=== PATIENT | female | born 1965 | race Two or more races ===

== ENCOUNTER 2020-05-17 15:15 | Emergency (ER) | payer OTHER ==
[~2020-05-17] VITALS: Ht 157.5 cm; Wt 63.5 kg
--- NOTE | 2020-05-17 15:40 | Emergency Room Report ---
History of Present Illness General Chief Complaint: Chest Pain Source: Patient Present Illness HPI Disclaimer: Please note that this report is being documented using [employer] technology. This can lead to erroneous entry secondary to incorrect interpretation by the dictating instrument. HPI: 54-year-old female presents for evaluation of elevated blood pressure readings at home. She takes losartan 50 mg at night has been compliant with her current regimen. She states her blood pressures were elevated 2 nights ago as high as 190 systolic. This morning they were in the 140s however she called her clinic and was advised to present to the emergency department for evaluation of elevated blood pressures. She states she had mild chest discomfort neither pain on pressure 2 days ago but now is feeling well. She reported urinary frequency last night. She denied headaches, visual changes, nausea, vomiting, lightheadedness, palpitations, shortness of breath, cough, fever, chills or other changes in her health otherwise. She is not a diabetic. No prior cardiac history. Non-smoker. PMH: Hypertension PSH: Reviewed Allergies: Denied Social Hx: Non-smoker, denies alcohol or drug use Allergies: Coded Allergies: No Known Allergies (Unverified , 05/17/20) COVID-19 Screening Contact w/high risk pt: No Experienced COVID-19 symptoms?: No COVID-19 Testing performed INTERNAL CONTROL CONSULTANT: No Patient History Last Menstrual Period: na Nursing Documentation-PMH Past Medical History: No History, Except For Hx Hypertension: Yes Review of Systems All Other Systems: negative except mentioned in HPI Physical Exam Vital Signs Date Time Temp Pulse Resp B/P (MAP) Pulse Ox O2 Delivery O2 Flow Rate FiO2 05/17/20 15:27 98.4 86 19 143/92 (109) 97 Room Air General: Awake and alert, no acute distress HEENT: NC/AT. EOMI. Cardiovascular: RRR. S1 and S2 normal. No murmur appreciated Resp: Normal work of breathing. No cough, wheezing or crackles appreciated Abdomen: Abdomen is soft, nondistended. Nontender Skin: Intact. No abrasions, laceration or rash over the exposed skin MSK: Normal tone and bulk. Moving all extremities. No obvious deformity. No lower extremity edema Neuro: Awake and alert. Mentating appropriately. Medical Decision Making Diagnostic Impression: Primary Impression: Hypertension ER Course Is a 54-year-old female presenting for evaluation of elevated blood pressure readings at home over the past few days. She is compliant with her 50 mg nightly medication. Currently has no complaints and is resting comfortably in bed. Differential includes was not limited to medication noncompliance, inadequate medication regimen, hypertensive urgency, hypertensive emergency, ACS, arrhythmia, renal failure, electrolyte abnormality, urinary tract infection, anxiety among others. EKG is nonischemic and overall unremarkable. No findings on chest x-ray. Cardiac silhouette within normal limits. Labs are returned within normal limits including a negative troponin. Patient remains chest pain-free. She is reassured by these results. Heart score is 2 for age and risk factor of hypertension. Patient is low risk for MACE and appropriate for outpatient follow-up. Copies of her work-up today were provided in discharge paperwork to take to her physician. Encouraged her to discuss her symptoms with her PMD as she may require further outpatient testing. Instructed her to return to the emergency department new or worsening symptoms. She understands and agrees with this treatment plan. Laboratory Tests Test 05/17/20 15:45 White Blood Count 6.8 K/UL (4.8-10.8) Red Blood Count 4.79 M/UL (4.20-5.40) Hemoglobin 15.5 G/DL (12.0-16.0) Hematocrit 43.8 % (37.0-47.0) Mean Corpuscular Volume 91 FL (80-99) Mean Corpuscular Hemoglobin 32.4 PG (27.0-31.0) H Mean Corpuscular Hemoglobin Concent 35.5 G/DL (32.0-36.0) Red Cell Distribution Width 12.2 % (11.6-14.8) Platelet Count 224 K/UL (150-450) Mean Platelet Volume 7.4 FL (6.5-10.1) Neutrophils (%) (Auto) 59.2 % (45.0-75.0) Lymphocytes (%) (Auto) 28.6 % (20.0-45.0) Monocytes (%) (Auto) 9.9 % (1.0-10.0) Eosinophils (%) (Auto) 1.1 % (0.0-3.0) Basophils (%) (Auto) 1.3 % (0.0-2.0) Urine Color Pale yellow Urine Appearance Slightly cloudy Urine pH 6.5 (4.5-8.0) Urine Specific [place] 1.010 (1.005-1.035) Urine Protein Negative (NEGATIVE) Urine Glucose (UA) Negative (NEGATIVE) Urine Ketones Negative (NEGATIVE) Urine Blood 1+ (NEGATIVE) H Urine Nitrite Negative (NEGATIVE) Urine Bilirubin Negative (NEGATIVE) Urine Urobilinogen Normal MG/DL (0.0-1.0) Urine Leukocyte Esterase Negative (NEGATIVE) Urine RBC 2-4 /HPF (0 - 2) H Urine WBC 0-2 /HPF (0 - 2) Urine Squamous Epithelial Cells Few /LPF (NONE/OCC) Urine Bacteria Few /HPF (NONE) Sodium Level 139 MMOL/L (136-145) Potassium Level 3.9 MMOL/L (3.5-5.1) Chloride Level 103 MMOL/L (98-107) Carbon Dioxide Level 28 MMOL/L (21-32) Anion Gap 8 mmol/L (5-15) Blood Urea Nitrogen 13 mg/dL (7-18) Creatinine 1.1 MG/DL (0.55-1.30) Estimated Glomerular Filtration Rate 51.6 mL/min (>60) Glucose Level 127 MG/DL (74-106) H Calcium Level 8.4 MG/DL (8.5-10.1) L Total Bilirubin 0.6 MG/DL (0.2-1.0) Aspartate Amino Transferase (AST) 25 U/L (15-37) Alanine Aminotransferase (ALT) 24 U/L (12-78) Alkaline Phosphatase 75 U/L (46-116) Troponin I 0.000 ng/mL (0.000-0.056) Total Protein 7.0 G/DL (6.4-8.2) Albumin 4.3 G/DL (3.4-5.0) Globulin 2.7 g/dL Albumin/Globulin Ratio 1.6 (1.0-2.7) EKG Diagnostic Results Troponin ordered: Yes When was troponin ordered?: May 17, 2020 EKG Time: 15:42 Rate: normal Rhythm: NSR ST Segments: no acute changes Other Impression Sinus rhythm, normal axis, normal intervals, no ST segment changes. Rhythm Strip Diag. Results Rhythm Strip Time: 15:42 EP Interpretation: yes Rate: 70s Rhythm: NSR, no PVC's, no ectopy Chest X-Ray Diagnostic Results Chest X-Ray Diagnostic Results : Chest X-Ray Ordered: Yes Indication: Chest Pain EP Interpretation: Yes Interpretation: no consolidation, no effusion, no pneumothorax, other - Normal cardiac silhouette Impression: No acute disease Electronically Signed by: Electronically signed by Dr. Mark Rizzo MD Last Vital Signs Date Time Temp Pulse Resp B/P (MAP) Pulse Ox O2 Delivery O2 Flow Rate FiO2 05/17/20 15:27 98.4 86 19 143/92 (109) 97 Room Air Disposition: HOME, SELF-CARE Condition: Stable Mark Rizzo MD May 17, 2020 15:40
--- NOTE | 2020-05-17 15:58 | NUR ---
ED Nurse Note: pt presents to ed from home with c/o urinary frequency and cp since sunday. relates no n/v. lungs cta no resp distress no cough. no fever. placed on telemtry pt with iv start and lab draw done pt tolerates well.
[2020-05-17 16:07] LABS: CALCIUM 8.4 MG/DL (8.5-10.1); CREATININE 1.1 MG/DL (0.55-1.30); POTASSIUM 3.9 MMOL/L (3.5-5.1)
[2020-05-17 16:12] LABS: ALBUMIN 4.3 G/DL (3.4-5.0); ALBUMIN/GLOBULIN RATIO 1.6 (1.0-2.7); BILIRUBIN,TOTAL 0.6 MG/DL (0.2-1.0)
[2020-05-17 16:28] LABS: APPEARANCE,URINE SLIGHTLY CLOUDY; BILIRUBIN, URINE NEGATIVE (NEGATIVE); COLOR,URINE PALE YELLOW; GLUCOSE, URINE (UA) NEGATIVE (NEGATIVE); KETONES,URINE NEGATIVE (NEGATIVE); LEUKOCYTE ESTERASE ,URINE NEGATIVE (NEGATIVE); NITRITE,URINE NEGATIVE (NEGATIVE); PH,URINE 6.5 (4.5-8.0); PROTEIN,URINE NEGATIVE (NEGATIVE); UROBILINOGEN,URINE NORMAL MG/DL (0.0-1.0)
[2020-05-17 16:32] LABS: BASOPHILS % (AUTO) 1.3 % (0.0-2.0); EOSINOPHILS % (AUTO) 1.1 % (0.0-3.0); HEMATOCRIT 43.8 % (37.0-47.0); HEMOGLOBIN 15.5 G/DL (12.0-16.0); LYMPHOCYTES % (AUTO) 28.6 % (20.0-45.0); MEAN CORPUSCULAR VOLUME 91 FL (80-99); MONOCYTES % (AUTO) 9.9 % (1.0-10.0); NEUTROPHILS % (AUTO) 59.2 % (45.0-75.0); PLATELET COUNT 224 K/UL (150-450); RED BLOOD COUNT 4.79 M/UL (4.20-5.40); RED CELL DISTRIBUTION WIDTH 12.2 % (11.6-14.8); WHITE BLOOD COUNT 6.8 K/UL (4.8-10.8)
[2020-05-17 17:09] VITALS: BP 154/88
--- NOTE | 2020-05-17 17:12 | NUR ---
ED Nurse Note: Pt cleared by health care Provider for discharge. DC instructions and copy of labs was given and explained to pt and verbalized understanding of teachings. All medical devices such as ID band removed. Pt is AAO x4, ambulatory and left with all personal belongings.
--- NOTE | 2020-05-17 17:21 | Diagnostic Imaging Report ---
Indication: Chest pain Technique: One view of the chest Comparison: none Findings: Lungs and pleural spaces are clear. Heart size is normal. Impression: No acute process
== END 2020-05-17 17:12 | disposition home or self-care (01) ==
LOC: EMR 15:59
DX: I10 Essential (primary) hypertension (principal); R07.9 Chest pain, unspecified
CPT/HCPCS: 36415; 71045; 80053; 81003; 84484; 85025; 93005; Z7502; 99283